=== PATIENT | female | born 1940 | race Hispanic/Latino ===

== ENCOUNTER 2018-10-02 20:05 | Emergency (ER) | payer OTHER, MEDICARE ==
[2018-10-02 20:14] VITALS: TEMP 98.1
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
[2018-10-02 23:22] VITALS: BP 160/89; PULSE 96; RESP 17; O2SAT 97
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
== END 2018-10-02 23:35 | disposition home or self-care (01) ==
LOC: EDSEX 20:05 → H.ER 20:05 → MERGE 20:05 → H.ER 23:35
DX: S62.91XA Unspecified fracture of right hand, initial encounter for closed fracture (principal); S00.12XA Contusion of left eyelid and periocular area, initial encounter; S01.81XA Laceration without foreign body of other part of head, initial encounter; W22.8XXA Striking against or struck by other objects, initial encounter; Y92.410 Unspecified street and highway as the place of occurrence of the external cause; E78.00 Pure hypercholesterolemia, unspecified; I10 Essential (primary) hypertension